=== PATIENT | male | born 1955 | race Hispanic/Latino ===

== ENCOUNTER → 2020-02-15 11:08 | Outpatient (CLI) | payer BC, SELFPAY ==
--- NOTE | 2020-02-15 | DI.RAD.S_ITS ---
PROCEDURE: XR ELBOW LT MIN 3V INDICATIONS: Elbow pain TECHNIQUE: 3 views of the elbow were acquired. COMPARISON: None. FINDINGS: Bones: No fractures or dislocations. No suspicious bony lesions. Prominent olecranon bone spur. Osseous density visualized along the posterior aspect of the elbow. Soft tissues: No elbow joint effusion. IMPRESSION: 1. Prominent bone spur. 2. Prominent calcification involving the triceps tendon versus avulsed fracture fragment involving the olecranon. Recommend clinical correlation and if indicated, MRI could be performed. Dictated by: Piyush Jara [facility] Interpreted: Danny Noguera MD on 02/15/2020 at 15:09 Approved by: Danny Noguera M.D. on 02/16/2020 at 12:03
== END ==
PROVIDERS: PCP Family Medicine; Referring Provider Family Medicine; Visit Provider Orthopaedic Surgery
DX: M25.522 Pain in left elbow (principal); M70.22 Olecranon bursitis, left elbow
CPT/HCPCS: 73080

== ENCOUNTER → 2024-10-14 08:42 | Outpatient (CLI) | payer MEDICARE, BC, SELFPAY ==
--- NOTE | 2024-10-14 08:45 | DI.MRI.S_ITS ---
PROCEDURE: MR PELVIC PROSTATE PROTOCOL INDICATIONS: ELEVATED PSA TECHNIQUE: Coronal HASTE, axial T1 FSE with fat saturation, 3-plane nonbreath-hold T2 FSE. After the administration of contrast, dynamic axial, delayed axial and coronal VIBE or 2-D FLASH with fat saturation through the pelvis. Diffusion weighted imaging and ADC was performed. COMPARISON: None. FINDINGS: Image quality: Diffusion weighted and dynamic contrast enhanced images are diagnostic. Prostate: Gland size is 3.1 cm AP, 3.7 cm transverse and 3.9 cm craniocaudad cm; ellipsoid gland volume is 23.3 mL. No prostate lesion is found. PI-RADS score: Category 1, very low likelihood of clinically significant prostate carcinoma. Genitourinary system: Bladder wall thickness is normal. Distal ureters are non distended. Bilateral small to moderate hydroceles are incidentally noted. Bowel and peritoneum: No pathologic free pelvic fluid. Inferior colon and small bowel loops are normal in caliber. Nodes and vessels: No pelvic or inguinal adenopathy by size criteria. Iliac vessels are normal in caliber. Soft tissues: No inguinal hernias. Bones: Marrow demonstrates normal overall signal, without lesions to suggest metastases. IMPRESSION: PI-RADS category 1, very low likelihood of clinically significant prostate carcinoma. Incidental note is made of bilateral hydroceles, moderate in volume. No pelvic lymphadenopathy by size criteria. No aggressive osseous abnormality. Dictated by: Yohannes Pimentel M.D. on 10/14/2024 at 14:42 Approved by: Yohannes Pimentel M.D. on 10/14/2024 at 14:51
== END ==
PROVIDERS: PCP Family Medicine; Referring Provider Family Medicine; Visit Provider Family Medicine
DX: R97.20 Elevated prostate specific antigen [PSA] (principal); N43.3 Hydrocele, unspecified
CPT/HCPCS: 72197; A9579